=== PATIENT | female | born 1995 | race Caucasian/White ===

== ENCOUNTER 2017-01-22 22:09 | Emergency (ER) | payer OTHER ==
[2017-01-22 22:19] VITALS: BP 135/73; PULSE 91; RESP 16; O2SAT 98
[2017-01-22] MEDS ORDERED: DEXAMETHASONE 10 MG/ML VIAL PO ONE (22:22)
--- NOTE | 2017-01-22 22:25 | UCPHY ---
H & P Patient Type: New Chief Complaint Nursing Narrative: c/o sore throat since friday Time Seen by Provider: 01/22/17 22:18 HPI/ROS: CHIEF COMPLAINT: Sore throat HISTORY OF PRESENT ILLNESS: The patient is a 21-year-old healthy female who comes to the Urgent Care complaining of a sore throat for the last 3 days. She had a fever on Friday when it was 101. It is since resolved. She has not had a headache or neck pain. She is a dry cough and mild sinus congestion. She states that her primary complaint is the pain in her throat. She has not had any difficulty breathing. REVIEW OF SYSTEMS: Constitutional: See HPI EENTM: See HPIdenies: blurred vision, double vision, Respiratory: denies: cough, shortness of breath Cardiac: denies: chest pain, irregular heart rate, lightheadedness, palpitations Gastrointestinal/Abdominal: denies: abdominal pain, diarrhea, nausea, vomiting, blood streaked stools Genitourinary: denies: dysuria, frequency, hematuria, pain Musculoskeletal: denies: joint pain, muscle pain Skin: denies: lesions, rash, jaundice, bruising Neurological: denies: headache, numbness, paresthesia, tingling, dizziness, weakness Hematologic/Lymphatic: denies: blood clots, easy bleeding, easy bruising Immunologic/allergic: denies: HIV/AIDS, transplant EXAM: GENERAL: Well-appearing, well-nourished and in no acute distress. HEAD: Atraumatic, normocephalic. EYES: Pupils equal round and reactive to light, extraocular movements intact, sclera anicteric, conjunctiva are normal. ENT: TMs normal, nares patent, oropharynx erythematous with ulcerations . Moist mucous membranes. NECK: Normal range of motion, supple without lymphadenopathy or JVD. LUNGS: Breath sounds clear to auscultation bilaterally and equal. No wheezes rales or rhonchi. HEART: Regular rate and rhythm without murmurs, rubs or gallops. ABDOMEN: Soft, nontender, normoactive bowel sounds. no splenomegaly. No guarding, no rebound. No masses appreciated. BACK: No CVA tenderness, no spinal tenderness, step-offs or deformities EXTREMITIES: Normal range of motion, no pitting or edema. No clubbing or cyanosis. NEUROLOGICAL: Cranial nerves II through XII grossly intact. Normal speech, normal gait. 5/5 strength, normal movement in all extremities, normal sensation PSYCH: Normal mood, normal affect. SKIN: Warm, dry, normal turgor, no visible rashes or lesions. Source: Patient Exam Limitations: No limitations - Personal History LMP (Females 10-55): Extended Cycle BCP/Inj - Medical/Surgical History Hx Asthma: No Hx Chronic Respiratory Disease: No Hx Diabetes: No Hx Cardiac Disease: No Hx Renal Disease: No Hx Cirrhosis: No Hx Alcoholism: No Other PMH: denies - Family History Significant Family History: No pertinent family hx - Social History Smoking Status: Never smoked Alcohol Use: Sober Drug Use: None Constitutional: Initial Vital Signs Temperature (C) 37 C 01/22/17 22:16 Heart Rate 91 01/22/17 22:16 Respiratory Rate 16 01/22/17 22:16 Blood Pressure 135/73 H 01/22/17 22:16 O2 Sat (%) 98 01/22/17 22:16 O2 Delivery Mode Room Air Allergies/Adverse Reactions: Sulfa (Sulfonamide Antibiotics) Allergy (Verified 01/22/17 22:16) Home Medications: Medication Instructions Recorded AZITHROMYCIN [Z-PACK] 250 mg PO DAILY #4 tab 01/22/17 Medical Decision Making ED Course/Re-evaluation: I will treat the patient for strep pharyngitis considering her symptoms. We will send this well for confirmation. She asked about mononucleosis that she has had before. She does not have any splenomegaly. No obvious purulence in her pharynx. We discussed expected management and indications for returning. Differential Diagnosis: Partial list of the Differential diagnosis considered include but were not limited to; pharyngitis, strep throat, mononucleosis and although unlikely based on the history and physical exam, I also considered phlegmon, abscess, bronchitis, sinusitis, meningitis. I discussed these differential diagnoses and the plan with the patient as well as the usual and expected course. The patient understands that the diagnosis is provisional and that in medicine we are not always correct and that further workup is often warranted. Usual and customary warnings were given. All of the patient's questions were answered. The patient was instructed to return to the emergency department should the symptoms at all worsen or return, otherwise to followup with the physician as we discussed. - Data Points Laboratory Results: 01/22/17 01/22/17 Unknown 22:25 Group A Strep Screen NEGATIVE (NEGATIVE) Group A Strep DNA Pending Medications Given: Discontinued Medications Azithromycin (Zithromax) 500 mg PO EDNOW ONE PRN Reason: Protocol Stop: 01/22/17 22:38 Last Admin: 01/22/17 22:38 Dose: 500 mg Dexamethasone (Decadron Injection) 10 mg PO EDNOW ONE Stop: 01/22/17 22:23 Last Admin: 01/22/17 22:30 Dose: 10 mg Departure - Departure Disposition: Home, Routine, Self-Care Clinical Impression: Pharyngitis Qualifiers: Pharyngitis/tonsillitis etiology: unspecified etiology Qualified Code(s): J02.9 - Acute pharyngitis, unspecified Condition: Fair Instructions: Pharyngitis (ED) Referrals: Avani Hair MD [Medical Doctor] - As per Instructions Prescriptions: AZITHROMYCIN [Z-PACK] 250 mg PO DAILY #4 tab - PQRS PQRS Measurement: Not applicable
[2017-01-22 22:26] VITALS: TEMP 98.6
[2017-01-22] MEDS ORDERED: AZITHROMYCIN 250 MG TAB PO ONE ×2 (22:33→22:37)
== END 2017-01-22 22:39 | disposition home or self-care (01) ==
LOC: CED 22:09
DX: J02.9 Acute pharyngitis, unspecified (principal); Z88.2 Allergy status to sulfonamides
CPT/HCPCS: 87880-PO; 99204-PO; G0463-PO